=== PATIENT | male | born 1985 | race Caucasian/White ===

== ENCOUNTER → 2020-01-22 | Outpatient (CLI) | payer OTHER ==
[~2020-01-22] MED LIST: CEPH-507 PO; METR500T PO; OMEP20TA2 PO; TRM50T PO
--- NOTE | 2020-01-22 16:34 | Diagnostic Imaging Report ---
INDICATION: Left thumb pain. Lump at base of thumb. TECHNIQUE: Single-view hand with three views of the left thumb, 2:58 p.m. CORRELATION STUDY: None. FINDINGS: Imaging of the left hand has an unremarkable appearance. The osseous structures are intact. Alignment is anatomic. Joint spaces are maintained. Imaging at the left thumb has an unremarkable appearance as well. There is mildly prominent sesamoid bone at the level of the metacarpophalangeal as well as interphalangeal joints. There is slight spur-like formation at the base of the first metacarpal. This is in the area near the area marked. There is prominent soft tissue nodularity and bump-like area at this level. No associated calcification in the area of soft tissue prominence. IMPRESSION: 1. Negative for acute findings of the left hand with attention to the left thumb. 2. There is noted rather prominent soft tissue nodularity at the area marked as a region of concern. This is nonspecific as to etiology. If further imaging evaluation is desired, MRI would be recommended. Dictated by: Dictated on workstation # [id number]
== END ==
LOC: RAD FS 14:47
PROVIDERS: ATTEND Nurse Practitioner
DX: M79.645 Pain in left finger(s) (principal); R22.32 Localized swelling, mass and lump, left upper limb
CPT/HCPCS: 73140

== ENCOUNTER 2020-02-07 12:07 | Emergency (ER) | payer OTHER ==
[~2020-02-07] VITALS: Ht 183 cm; Wt 77.0 kg
[2020-02-07] MEDS ORDERED: LIDOCAINE 1% INJ 20 ML 20 ML VIAL ONE (12:09)
--- NOTE | 2020-02-07 12:55 | ED Upper Extremity ---
General Chief Complaint: Trauma-Non Activation Stated Complaint: WC RT FINGER LAW Nursing Triage Note: Patient reports getting his right 4th finger caught in a press at work. Nursing Sepsis Screen: No Definite Risk Source: patient History of Present Illness Date Seen by Provider: Feb 07, 2020 Time Seen by Provider: 11:55 Initial Comments 34-year-old male presents to the emergency room with a press injury to his right fourth digit. He has a deep laceration possible partial amputation of the distal phalanx of the fourth ray right hand. Patient states that his finger was caught in a press. He is aware that he may lose the fingertip. Patient gave informed consent for diagnostic and therapeutic services. He denies any other injuries all he does have an avulsion injury of his left forearm Brice surface from a few days ago. Patient consented to digital block and 1% Xylocaine was infiltrated into the fourth ray right hand patient denies any other medical problems denies any other injuries is no history of cardiovascular pulmonary GI or renal disease. He is a smoker. He also admits to using marijuana. Patient states that he came into the emergency room shortly after the injury which's about 30 minutes old upon my first examination. Onset: just prior to arrival Pain/Injury Location: right 4th finger (fourth finger and the right avulsion crush injury to the distal phalanx cyanotic flap) Method of Injury: other (were related injury finger caught in a press) Modifying Factors: Improves With Movement Allergies and Home Medications Allergies Coded Allergies: No Known Drug Allergies (Unverified , 01/09/13) Home Medications Cephalexin 500 Mg Capsule, 500 MG PO TID Prescribed by: KAREN PAINTING on 04/12/162007 Patient Home Medication List Home Medication List Reviewed: Yes Review of Systems Constitutional: weakness (secondary to crush injury to the right hand fourth digit patient denies any other physical injuries to the rest of his body) EENTM: see HPI (patient did feel weak which is most likely secondary to the crush injury to the hand and pain he felt much better after the digital block was applied.) Respiratory: no symptoms reported (although patient is a smoker) Cardiovascular: no symptoms reported Gastrointestinal: no symptoms reported (some nausea this transient secondary to hand injury) Genitourinary: no symptoms reported Musculoskeletal: see HPI, joint pain (right hand distal interphalangeal joint fourth ray), muscle pain (avulsion partial amputation distal phalanx right fourth ray) Skin: change in color (cyanotic flap patient is aware he may lose the finger tip), other (avulsion laceration distal phalanx right fourth ray) Psychiatric/Neurological: Anxiety Past Usqhkud-Mkjyal-Sdfgkz Hx Past Med/Social Hx: Reviewed Nursing Past Med/Soc Hx Patient Social History Alcohol Use: Regular Use Alcohol Beverage of Choice: Vodka Recreational Drug Use: Yes Drug of Choice: thc Smoking Status: Current Everyday Smoker Type Used: Cigarettes 2nd Hand Smoke Exposure: Yes Recent Foreign Travel: No Contact w/Someone Who Travel: No Recent Infectious Disease Expo: No Seasonal Allergies Seasonal Allergies: No Past Medical History Surgeries: No Respiratory: No Cardiac: No Neurological: No Gastrointestinal: No Musculoskeletal: No Endocrine: No Cancer: No Psychosocial: No Integumentary: No Blood Disorders: No Adverse Reaction/Blood Tranf: No Physical Exam Vital Signs Vital Signs - First Documented 02/07/20 12:18 Temp 37.0 Pulse 100 Resp 20 B/P (MAP) 150/75 (100) Pulse Ox 98 Capillary Refill : Less Than 3 Seconds Height, Weight, BMI Height: 5'11" Weight: 170lbs. oz. 77.636561qv; 22.00 BMI Method:Stated General Appearance: WD/WN, moderate distress (. Pain from partial amputation with a cyanotic flap fourth ray distal phalanx) HEENT: PERRL/EOMI, normal ENT inspection, pharynx normal Neck: non-tender, full range of motion, supple, normal inspection Cardiovascular: normal peripheral pulses (distal flap has poor circulation patient is aware that he may lose the distal flap of this injury), regular rate, rhythm, no edema, no gallop, no JVD, no murmur Respiratory: chest non-tender, lungs clear, normal breath sounds, no respiratory distress, no accessory muscle use Gastrointestinal: normal bowel sounds, non tender, soft, no organomegaly, no pulsatile mass Back: normal inspection, no CVA tenderness, no vertebral tenderness Shoulder: non-tender, no evidence of injury, normal ROM Elbow/Forearm: normal inspection, non-tender, no evidence of injury, normal ROM Wrist: Yes normal inspection, Yes non-tender, Yes no evidence of injury, Yes normal ROM Hand: Right, bone tenderness, deformity, laceration (cyanotic avulsion flap of the distal phalanx right hand fourth ray), swelling Reflexes: 2+ bicep (R), 2+ bicep (L) Neurologic/Tendon: normal motor functions, normal tendon functions (proximal to the laceration), responds to pain (digital block applied to the fourth ray right hand), tendon function deficit (suspect extensor tendon laceration distal phalanx) 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, no motor/sensory deficits, alert, normal mood/affect, oriented x 3 Skin: warm/dry, cyanosis (distal flap on right fourth ray) Lymphatic: no adenopathy Procedures/Interventions Wound Location: Upper Extremities (80% avulsion of the distal tip of the right fourth ray including the nail) Wound Length (cm): 4 Wound's Depth, Shape: irregular, nail-avulsed (and tip of finger 80% avulsed), bone (is intact no fracture), tendon (patient is able to extend the distal phalanx) Wound Explored: contaminated Betadine Prep?: Yes Anesthesia: 1% Lidocaine Volume Anesthetic (ccs): 6 Wound Debrided: extensive (adipose layer and the avulsed tip removed to prevent fatty necrosis) Suture: Ethlion Suture Size: 4-0 F5-2 Number of Sutures: 6 (with one suture through the nail anchoring the nail and the root into the distal dorsal finger) Layer Closure?: 1 Number Deep Layer Sutures: 0 Sterile Dressing Applied?: Yes Progress Patient is aware that he may lose the tip of his finger. Wound was cleaned and scrubbed with Betadine and rinsed with normal saline tip of the avulsed finger was defatted to remove fatty globules to decrease fatty necrosis. Patient is aware that Dr. Benítez will follow up and that the distal transplanted tip may need to be removed. Patient states he accepts that consequence for the injury. 1 g of Rocephin was given IM patient is to monitor and will continue Keflex 500 4 times a day. Progress/Results/Core Measures Results/Orders My Orders Orders - REBECA OCPELAND DO Hand 3 View Right (02/07/20 12:44) Ceftriaxone For Im Use (Rocephin For Im (02/07/20 14:32) Lidocaine 1% Inj 20 Ml (Xylocaine 1% Inj (02/07/20 14:45) Vital Signs/I&O 02/07/20 12:18 Temp 37.0 Pulse 100 Resp 20 B/P (MAP) 150/75 (100) Pulse Ox 98 Blood Pressure Mean: 100 Progress Progress Note : Time: 13:19 Progress Note Imaging back and patient does not have a fracture of the distal tuft or phalanx laceration will be scrubbed clean and sutured. Patient does understand that a avulsion flaps may not take and he could lose the flap in the future requiring orthopedic and hand surgery. He accepts this possibility. EXAMINATION: AP, oblique and lateral views the right hand are obtained. There is swelling about the tip of the 4th finger with injury to nail bed and adjacent soft tissues. There is no evidence of underlying fracture. There is no malalignment or radiopaque foreign body. No abnormal lytic or sclerotic focus is identified. IMPRESSION: Nailbed and soft tissue injury to 4th fingertip without acute osseous abnormality. Departure Impression Primary Impression: Avulsion of fingertip Additional Impression: Avulsed fingernail Disposition: HOME, SELF-CARE (follow-up care with Dr. Benítez) Condition: Improved Departure-Patient Inst. Decision time for Depature: 14:47 Referrals: NO,LOCAL PHYSICIAN (PCP) Primary Care Physician SANTOS VELOZ MD Patient Instructions: Surgical Wound (DC), Amputation of the Finger or Fingertip Add. Discharge Instructions: 34-year-old male with industrial injury with nearly complete avulsion of the right fourth fingertip and nail. Patient's finger was caught in a press. No fracture was identified. Patient consented to surgical debridement and reapproximation of the fingertip area. Nail was embedded and sutures placed through the nail to keep the nail in place. Patient tolerated the procedure well total blood loss was less than 10 cc avulsed tip was defatted follow-up care with Dr. Veloz. Is very aware that he may lose the tip of the finger and needs surgical intervention for a partial dictation. Insinuate Keflex 500 mg 4 times a day did receive Rocephin 1 g IM in the emergency room. Keep the wound clean and dry. All discharge instructions reviewed with patient and/or family. Voiced understanding. Scripts Cephalexin (Cephalexin) 500 Mg Tablet 500 MG PO QID for 10 Days, #40 TAB 0 Refills Prov: REBECA COPELAND DO 02/07/20 Work/School Note: Work Release Form Date Seen in the Emergency Department: Feb 07, 2020 Return to Work: Feb 19, 2020 Restrictions: Need Release from Doctor Other Restrictions Listed Below: Needs release from Dr Veloz and may need further surgery Restrictions: Keep wound clean and dry Copy Copies To 1: SANTOS VELOZ MD, ANTHONY H DO Feb 07, 2020 12:55
[2020-02-07] MEDS ORDERED: cefTRIAXone 1,000 MG/2.86 ml vial (IM ONLY) IM STA (14:32)
[2020-02-07] MEDS ORDERED: LIDOCAINE 1% INJ 20 ML 20 ML VIAL INJ ONE (14:45)
[2020-02-07] MEDS ORDERED: CEPH500T PO (14:53)
[2020-02-07 15:18] VITALS: BP 150/75
== END 2020-02-07 15:28 | disposition home or self-care (01) ==
LOC: EDUNIT# 12:07 → ER FS 12:15
DX: S61.314A Laceration without foreign body of right ring finger with damage to nail, initial encounter (principal); W31.89XA Contact with other specified machinery, initial encounter; Y99.0 Civilian activity done for income or pay; F17.210 Nicotine dependence, cigarettes, uncomplicated
CPT/HCPCS: 11730; 12042; 73130

== ENCOUNTER → 2020-03-04 | Outpatient (CLI) | payer OTHER ==
[~2020-03-04] MED LIST changes: +CEPH500T PO
--- NOTE | 2020-03-04 10:14 | Diagnostic Imaging Report ---
EXAMINATION: CT Abdomen Pelvis without contrast. TECHNIQUE: Multiple contiguous axial images were obtained through the abdomen and pelvis without the use of intravenous contrast. All CT scans use one or more of the following dose optimizing techniques: automated exposure control, MA and/or KvP adjustment based on a patient size and exam type, or iterative reconstruction. HISTORY: FEVER,GEN ABD PAIN COMPARISON: 01/09/2015 FINDINGS: Limited views of the lower thorax are unremarkable. The liver is normal without focal lesion. There is no biliary ductal dilation. Gallbladder is normal. There is an unchanged calcification adjacent to the gallbladder. Pancreas is normal. Spleen is normal. Adrenal glands are normal. The kidneys are normal. There is no hydronephrosis. Urinary bladder is normal. Visualized bowel is normal in caliber without obstruction or inflammation. The appendix is normal. No free fluid or air. No abdominal or pelvic lymphadenopathy. Aorta is normal in caliber without aneurysm. There are no suspicious osseus lesions. IMPRESSION: 1. No acute abnormality in the abdomen or pelvis. Dictated by: Dictated on workstation # [id number]
[2020-03-04 10:22] LABS: HEMATOCRIT 45 % (40-54); HEMOGLOBIN 15.1 G/DL (13.3-17.7); MEAN CORPUSCULAR HEMOGLOBIN 30 PG (25-34); MEAN CORPUSCULAR HGB CONC 34 G/DL (32-36); MEAN CORPUSCULAR VOLUME 88 FL (80-99); PLATELET COUNT 244 10^3/uL (130-400); RED CELL DISTRIBUTION WIDTH 13.3 % (10.0-14.5); WHITE BLOOD COUNT 8.9 10^3/uL (4.3-11.0)
[2020-03-04 10:23] LABS: BASOPHILS % (AUTO) 0 % (0-10); EOSINOPHILS # (AUTO) 0.1 10^3/uL (0.0-0.3); EOSINOPHILS % (AUTO) 1 % (0-10); LYMPHOCYTES # (AUTO) 2.2 X 10^3 (1.0-4.0); LYMPHOCYTES % (AUTO) 25 % (12-44); MONOCYTES # (AUTO) 0.6 X 10^3 (0.0-1.0); MONOCYTES % (AUTO) 6 % (0-12); NEUTROPHILS % (AUTO) 67 % (42-75)
[2020-03-04 10:41] LABS: BAND NEUTROPHILS 0 %; BASOPHILS % (MANUAL) 0 %; EOSINOPHILS % (MANUAL) 2 %; LYMPHOCYTES % (MANUAL) 33 %; METAMYELOCYTES % 1 %; MONOCYTES % (MANUAL) 5 %; NEUTROPHILS % (MANUAL) 59 %
[2020-03-04 11:21] LABS: BUN/CREATININE RATIO 16; CARBON DIOXIDE 26 MMOL/L (21-32); CHLORIDE 100 MMOL/L (98-107); CREATININE SERUM 0.94 MG/DL (0.60-1.30); GFR ESTIMATED > 60; GLUCOSE 97 MG/DL (70-105); POTASSIUM 4.6 MMOL/L (3.6-5.0); SODIUM 138 MMOL/L (135-145)
[2020-03-04 11:22] LABS: ALANINE AMINOTRANSFERASE 15 U/L (0-55); ALBUMIN 4.9 GM/DL (3.2-4.5); ALKALINE PHOSPHATASE 51 U/L (40-136); BILIRUBIN,TOTAL 0.5 MG/DL (0.1-1.0); CALCIUM 9.8 MG/DL (8.5-10.1); TOTAL PROTEIN 7.7 GM/DL (6.4-8.2)
== END ==
LOC: RAD FS 09:17
PROVIDERS: ATTEND Nurse Practitioner Family
DX: R10.84 Generalized abdominal pain (principal); R50.9 Fever, unspecified
CPT/HCPCS: 36415; 74176; 80053; 85007; 85027

== ENCOUNTER 2020-09-13 12:11 | Emergency (ER) | payer OTHER ==
[~2020-09-13] VITALS: Ht 180 cm; Wt 72.0 kg
--- NOTE | 2020-09-13 13:30 | ED Upper Extremity ---
General Chief Complaint: Upper Extremity Stated Complaint: ARM PAIN;SHOULDER PAIN;NECK PAIN Nursing Triage Note: PT AMB TO ROOM 6 PT CO OF R SHOULDER, R ARM AND STIFF NECK, PT STATES WAS MOVING STOVE LAST WEEK AND MAY HAVE INJURED IT Nursing Sepsis Screen: No Definite Risk Source: patient Exam Limitations: no limitations History of Present Illness Date Seen by Provider: Sep 13, 2020 Time Seen by Provider: 13:00 Initial Comments Patient is a 34-year-old male who presents to the emergency room today with a chief complaint of pain in his right lateral neck, shoulder, upper arm and forearm on the right for the last week. Patient states approximately a week ago he was moving a stove and later that day had some discomfort in his shoulder. He states it steadily progressed and worsened over the last 2 days. He has been taking ibuprofen without any relief. He is right-hand dominant. He complains of feeling that the arm is weak but this may be mostly due to the pain in the muscles of his arm. He points to the area of his triceps as the most pain. He denies any direct trauma. No recent fevers chills cough or other illness symptoms. He denies any ingestions, bug bites tick bites. No other weakness is reported in any other extremity. All other review of systems reviewed and negative except as stated. Onset: last week Pain/Injury Location: right shoulder, right arm, right elbow, right forearm Method of Injury: other Allergies and Home Medications Allergies Coded Allergies: No Known Drug Allergies (Unverified , 01/09/13) Home Medications Cephalexin 500 Mg Capsule, 500 MG PO TID Prescribed by: KAREN PAINTING on 04/12/162007 Cephalexin 500 Mg Tablet, 500 MG PO QID Prescribed by: REBECA COPELAND on 02/07/20 1456 Patient Home Medication List Home Medication List Reviewed: Yes Review of Systems Constitutional: no symptoms reported EENTM: no symptoms reported Respiratory: no symptoms reported Cardiovascular: no symptoms reported Gastrointestinal: no symptoms reported Musculoskeletal: muscle pain, muscle weakness (right arm) Skin: no symptoms reported All Other Systems Reviewed Negative Unless Noted: Yes Past Lkwlsex-Nitnpm-Knwdoi Hx Patient Social History Alcohol Use: Occasionally Uses Number of Drinks Today: FF Alcohol Beverage of Choice: Vodka Recreational Drug Use: Yes Drug of Choice: thc Smoking Status: Current Everyday Smoker Type Used: Cigarettes 2nd Hand Smoke Exposure: Yes Recent Foreign Travel: No Contact w/Someone Who Travel: No Recent Infectious Disease Expo: No Recent Hopitalizations: No Physical Abuse: No Sexual Abuse: No Seasonal Allergies Seasonal Allergies: No Past Medical History Surgeries: Yes (ELBOW) Respiratory: No Cardiac: No Neurological: No Gastrointestinal: No Musculoskeletal: No Endocrine: No Cancer: No Psychosocial: No Integumentary: No Blood Disorders: No Adverse Reaction/Blood Tranf: No Physical Exam Vital Signs Vital Signs - First Documented 09/13/20 12:20 Temp 36.1 Pulse 79 Resp 18 B/P (MAP) 137/80 (99) Pulse Ox 100 Capillary Refill : Less Than 3 Seconds Height, Weight, BMI Height: 5'11" Weight: 170lbs. oz. 77.797376vc; 22.00 BMI Method:Stated General Appearance: WD/WN, no apparent distress HEENT: PERRL/EOMI Neck: non-tender, full range of motion, supple, normal inspection Cardiovascular: regular rate, rhythm Respiratory: lungs clear, normal breath sounds, no respiratory distress, no accessory muscle use, other (Tenderness of the muscles overlying the right chest) Gastrointestinal: soft Back: normal inspection Shoulder: normal inspection Elbow/Forearm: soft tissue tenderness (Pain and tenderness over the course of the entire upper arm specifically the triceps muscles. It is noted that the triceps have significant lack of tone in the relaxed position. Much more so than his left arm. 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) Neurologic/Psychiatric: alert, normal mood/affect, oriented x 3 Skin: normal color, warm/dry Procedures/Interventions Suture Size: 4-0 F5-2 Progress/Results/Core Measures Results/Orders My Orders Orders - SKYLAR JIMENES MD Ketorolac Injection (Toradol Injection) (09/13/20 13:45) Ketorolac Injection (Toradol Injection) (09/13/20 13:34) Vital Signs/I&O 09/13/20 12:20 Temp 36.1 Pulse 79 Resp 18 B/P (MAP) 137/80 (99) Pulse Ox 100 Blood Pressure Mean: 99 Progress Progress Note : Time: 13:28 Progress Note 34-year-old male presents with a chief complaint of right arm pain and difficulty with function of his right arm. Evaluation today includes a physical exam I suspect that the patient has some type of brachial plexus neuropathy/myopathy. I am going to set him up for an outpatient cervical MRI just to exclude any central radiculopathy. Going to recommend that he follow-up at [facility] as well as with the neurologist. It might be that he needs to have EMGs done sooner rather than later to evaluate the nerve function in his right arm. As he is right-hand dominant this needs to be accomplished in a timely fashion to make sure that he does not have any longstanding deficits. I provided him with a prescription for some Toradol to take as needed for pain while cautioning him against using any other type of NSAID. I also gave him a sling for comfort for his right arm. Patient verbalized understanding of his discharge instructions all questions are sought and answered he is stable for discharge. Departure Impression Primary Impression: Radiculopathy of cervical spine Disposition: 01 HOME, SELF-CARE Condition: Stable Departure-Patient Inst. Decision time for Depature: 13:30 Referrals: [facility] (PCP/Family) Primary Care Physician Patient Instructions: How to Use a Shoulder Sling, Radiculopathy (DC) Add. Discharge Instructions: Wear the sling as needed for comfort in your right arm. Use the [id number] Toradol as needed up to 3 times a day. Always take this medication with food. Do not take any additional Aleve or ibuprofen while taking the Toradol. Come back to the emergency department for reevaluation if you have any significant worsening. Please call and follow-up with [facility] regarding further follow-up for your arm issue. I have referred you for an outpatient MRI of your neck. Please call to schedule this appointment. You will also likely need follow-up with a neurologist. Please talk to [facility] about obtaining a referral to a neurologist. All discharge instructions reviewed with patient and/or family. Voiced understanding. Scripts Ketorolac Tromethamine (Ketorolac Tromethamine) 10 Mg Tablet 10 MG PO Q8H PRN for PAIN-BREAKTHROUGH, #15 TAB Prov: SKYLAR JIMENES MD 09/13/20 SKYLAR JIMENES MD Sep 13, 2020 13:30
[2020-09-13] MEDS ORDERED: KETOROLAC 30 MG/ML VIAL ONE (13:34)
[2020-09-13] MEDS ORDERED: KETO10TA PO (13:39)
[2020-09-13 13:40] VITALS: BP 137/80
[2020-09-13] MEDS ORDERED: KETOROLAC 60 MG/2 ML VIAL IM ONE (13:45)
--- NOTE | 2020-09-13 14:00 | NUR ---
COPY OF OUTPATIENT MRI ORDER TO CHART
== END 2020-09-13 13:59 | disposition home or self-care (01) ==
LOC: EDUNIT# 12:11 → ER 12:13
DX: M54.12 Radiculopathy, cervical region (principal); F17.210 Nicotine dependence, cigarettes, uncomplicated
CPT/HCPCS: 99284; A4565

== ENCOUNTER → 2020-09-20 | Outpatient (CLI) | payer SELFPAY ==
[~2020-09-20] MED LIST changes: +KETO10TA PO
--- NOTE | 2020-09-20 10:23 | Diagnostic Imaging Report ---
Indication: Pre-MRI screening. Patient reportedly has history of metal foreign body within the left forearm. Time of exam: 9:52 AM 2 views of the left forearm were obtained. There is a metallic foreign body identified in the volar soft tissues of the forearm at the level of the mid shaft of the radius and ulna. This appears to be on the radial side. Foreign body measures 5 mm in size. Alignment at the elbow and wrist is normal. The radius and ulna are intact. IMPRESSION: Metallic foreign body volar soft tissues of the forearm, as described. Dictated by: Dictated on workstation # [id number]
== END ==
LOC: RAD 09:31
PROVIDERS: ATTEND Registered Nurse
DX: M54.12 Radiculopathy, cervical region (principal)
CPT/HCPCS: 73090

== ENCOUNTER → 2020-10-01 | Outpatient (CLI) | payer SELFPAY ==
--- NOTE | 2020-10-01 10:44 | Diagnostic Imaging Report ---
PROCEDURE: MR imaging cervical spine without contrast. TECHNIQUE: Multiplanar, multisequence MR imaging of the cervical spine was performed without contrast. INDICATION: Right arm pain. Weakness. COMPARISON: none. FINDINGS: No acute fracture or dislocation is seen in the cervical spine. Straightening of the cervical spine. The vertebral body heights are well maintained. Endplate degenerative changes are present at the C5-C6 level. No focal osseous lesions. The craniocervical junction is maintained. The cervical spinal cord demonstrates normal intrinsic signal. No epidural collections are seen. The included brainstem and posterior fossa have normal appearance. Multilevel degenerative changes are seen in the cervical spine with posterior disc bulges and uncovertebral arthropathy. C2-C3: No significant spinal canal or foraminal stenosis. C3-C4: Uncovertebral arthropathy and left subarticular disc bulge results in no significant spinal canal narrowing and mild right and moderate left foraminal stenosis. C4-C5: Posterior disc bulge and uncovertebral arthropathy results in mild spinal canal narrowing and moderate right and no left foraminal stenosis. C5-C6: Right paracentral disc protrusion, buckling of ligamentum flavum and uncovertebral arthropathy results in severe spinal canal stenosis and moderate to severe right and moderate left foraminal stenosis. C6-C7: Posterior disc bulge and uncovertebral arthropathy results in no significant spinal canal narrowing and no significant foraminal narrowing. C7-T1: No significant spinal canal or foraminal stenosis. The soft tissues of neck are unremarkable. IMPRESSION: 1. No acute fracture or dislocation of the cervical spine. 2. Multilevel degenerative changes in the cervical spine, greatest at C5-C6 with a prominent right paracentral disc protrusion resulting in severe spinal canal stenosis and moderate to severe right foraminal stenosis. 3. Endplate degenerative changes at the C5-C6 level. Dictated by: Dictated on workstation # [id number]
== END ==
LOC: RAD 09:30
PROVIDERS: ATTEND Emergency Medicine
DX: M47.22 Other spondylosis with radiculopathy, cervical region (principal); M48.02 Spinal stenosis, cervical region
CPT/HCPCS: 72141

== ENCOUNTER → 2021-08-27 | Outpatient (CLI) | payer SELFPAY ==
--- NOTE | 2021-08-27 17:23 | Diagnostic Imaging Report ---
EXAMINATION: Magnetic resonance imaging (MRI) of the cervical spine without contrast HISTORY: Back pain. TECHNIQUE: Multiplanar multi-weighted MRI of the cervical spine was performed without intravenous contrast using the standard cervical spine protocol. COMPARISON: 10/01/2020. FINDINGS: There is mild straightening of the normal cervical lordosis, likely secondary to spinal fusion at C4, C5, and C6. The visualized vertebral bodies demonstrate normal marrow signal intensity on all sequences. No acute fracture is seen. The craniocervical junction is normal. The visualized portions of the skull base and the posterior fossa are normal. The spinal cord demonstrates normal signal intensity on all sequences. The visualized intervertebral disks have normal height and signal intensity. No soft tissue abnormality is identified. Normal signal voids are present in the vertebral arteries. C2-C3: Small disc osteophyte complex. No central canal stenosis. Mild left neuroforaminal stenosis. C3-C4: Left asymmetric disc osteophyte complex. Mild central canal stenosis. Severe left neuroforaminal stenosis. Moderate right neuroforaminal stenosis. C4-C5: Right asymmetric disc osteophyte complex. Mild central canal stenosis. Severe right neuroforaminal stenosis. Moderate left neuroforaminal stenosis. C5-C6: Large disc osteophyte complex. Severe central canal stenosis. Severe bilateral neuroforaminal stenosis. C6-C7: Left asymmetric disc osteophyte complex. Moderate central canal stenosis. Mild bilateral neuroforaminal stenosis. C7-T1: Small disc osteophyte complex. Mild central canal stenosis. No neuroforaminal stenosis. IMPRESSION: 1. Stable degenerative changes of the lumbar spine with up to severe central canal stenosis at C5-C6. 2. Up to severe foraminal stenosis at left C3-C4, right C4-C5, bilateral C5-C6. Dictated by: Dictated on workstation # [id number]
== END ==
LOC: RAD 13:15
PROVIDERS: ATTEND Internal Medicine
DX: M48.02 Spinal stenosis, cervical region (principal); M47.12 Other spondylosis with myelopathy, cervical region; M47.816 Spondylosis without myelopathy or radiculopathy, lumbar region
CPT/HCPCS: 72141